=== PATIENT | male | born 1970 | race Hispanic/Latino ===

== ENCOUNTER 2024-04-10 15:28 | Emergency (ER) | payer OTHER ==
--- NOTE | 2024-04-10 16:18 | RAD REPORT ---
Procedure: Chest Single View HISTORY: Chest pain COMPARISON: none FINDINGS: The lungs appear clear of acute infiltrate. No significant pleural effusion noted. The heart is normal size. IMPRESSION: No acute abnormality is displayed.
[2024-04-10 16:42] LABS: Absolute Eosinophils 0.2 K/uL (0-0.5); Absolute Lymphocytes (CBC) 1.1 K/uL (0.7-4.9); Absolute Monocytes 0.3 K/uL (0.1-1.3); Absolute Neutrophil 3.6 K/uL (1.8-8.0); Basophils % 0.8 % (0-1.3); Eosinophils % 4.4 % (0-4.4); Hematocrit 44.2 % (39.6-49.0); Hemoglobin 15.5 g/dL (13.6-17.9); Lymphocytes % 20.2 % (15.3-44.8); MCH 32.8 pg (27.0-35.0); MCHC 35.1 g/dL (32.0-36.0); MCV 93.5 fL (80-100); MPV 6.9 fL (7.6-11.3); Neutrophils % 68.6 % (41.7-73.7); Nucleated Red Blood Cells % 0.1 % (0-0); Platelets 329 thou/uL (152-406); RBC Red Blood Cell Count 4.73 M/uL (4.33-5.43); Red Cell Distribution Width 12.6 % (12.1-15.2)
[2024-04-10] MEDS ORDERED: ASPIRIN 81 MG CHEWABLE TABLET ONE (16:44)
[2024-04-10 17:01] LABS: ALT/SGPT 28 U/L (16-61); AST/SGOT 20 U/L (15-37); Albumin 3.7 g/dL (3.4-5.0); Albumin/Globulin Ratio 1.1 (1.1-1.8); Alkaline Phosphatase 88 U/L (45-117); Anion Gap 7.9 mEq/L (5.0-15.0); BUN Blood Urea Nitrogen 16 mg/dL (7-18); Bicarbonate 25 mEq/L (21-32); Bilirubin Total 0.5 mg/dL (0.2-1.0); Globulin 3.4 g/dL (2.3-3.5); Glomerular Filtration Rate 81 ml/min (=/>90); Glucose Level 101 mg/dL (74-106); Magnesium 2.5 mg/dL (1.6-2.4); Potassium 3.9 mEq/L (3.5-5.1); Protein, Total 7.1 g/dL (6.4-8.2); Sodium Level 138 mEq/L (136-145)
[2024-04-10 17:02] LABS: Bilirubin Direct < 0.2 mg/dL (0-0.2); Bilirubin Indirect, Calculated 0.3 mg/dL (0.2-0.8); Troponin High Sensitivity < 3.0 pg/mL (<58.9)
--- NOTE | 2024-04-10 19:55 | ER ---
Nurse's Notes [facility] Name: Mike Sears Age: 53 yrs Sex: Male : 1970 Arrival Date: 04/10/2024 Time: 15:28 Bed 2 Private MD: Diagnosis: Chest pain, unspecified Presentation: 04/10 15:39 Chief complaint: Patient states: Dizzy this morning then at work about an hour ago me1 patient became dizzy and had chest tightness 5/10 with sob and vomited x1. Chest tightness 3/10 at this time. Coronavirus screen: Vaccine status: Patient reports receiving the 2nd dose of the covid vaccine. Ebola Screen: No symptoms or risks identified at this time. Initial Sepsis Screen: Does the patient meet any 2 criteria? No. Patient's initial sepsis screen is negative. Does the patient have a suspected source of infection? No. Patient's initial sepsis screen is negative. Risk Assessment: Do you want to hurt yourself or someone else? Patient reports no desire to harm self or others. Onset of symptoms was April 10, 2024 at 08:00. 15:39 Method Of Arrival: Ambulatory [facility] [place] 15:39 Acuity: MIKIE 3 me1 Triage Assessment: 15:45 General: Appears in no apparent distress. Behavior is calm, cooperative, appropriate bp for age. Pain: Complains of pain in chest. EENT: No deficits noted. Neuro: Reports dizziness. Cardiovascular: Reports chest pain. Respiratory: No deficits noted. GI: No signs and/or symptoms were reported involving the gastrointestinal system. : No signs and/or symptoms were reported regarding the genitourinary system. Derm: No deficits noted. Musculoskeletal: No deficits noted. Historical: - Allergies: 15:42 No Known Allergies; me1 - PMHx: 15:42 Anxiety; me1 - PSHx: 15:42 abscess I\T\D on back; me1 - Immunization history:: Adult Immunizations up to date. - Infectious Disease History:: Denies. - Social history:: Smoking status: Patient reports the use of cigarette tobacco products, denies chronic smoking, but will smoke occasionally. Screenin:45 [facility] ED Fall Risk Assessment (Adult) History of falling in the last 3 months, bp including since admission No falls in past 3 months (0 pts) Confusion or Disorientation No (0 pts) Intoxicated or Sedated No (0 pts) Impaired Gait No (0 pts) Mobility Assist Device Used No (0 pt) Altered Elimination No (0 pt) Score/Fall Risk Level 0 - 2 = Low Risk Oriented to surroundings. Abuse screen: Denies threats or abuse. Denies injuries from another. Nutritional screening: No deficits noted. Tuberculosis screening: No symptoms or risk factors identified. Assessment: 15:45 General: Appears in no apparent distress. Behavior is calm, cooperative, appropriate bp for age. 17:20 Reassessment: Patient appears in no apparent distress at this time. Patient is alert, bp oriented x 3, equal unlabored respirations, skin warm/dry/pink. 19:26 Reassessment: Patient is alert, oriented x 3, equal unlabored respirations, skin dd2 warm/dry/pink. Patient states feeling better. General: Appears in no apparent distress. Pain: Complains of pain in right upper quadrant and right lower quadrant Pain does not radiate. Pain currently is 2 out of 10 on a pain scale. Neuro: No deficits noted. Level of Consciousness is awake, alert, obeys commands, Oriented to person, place, time, situation, Appropriate for age. Cardiovascular: Patient's skin is warm and dry. Rhythm is sinus rhythm. Respiratory: No deficits noted. Airway is patent Respiratory effort is even, unlabored, Respiratory pattern is regular, symmetrical. GI: Abdomen is flat, non-distended, Abd is soft and non tender X 4 quads. Reports lower abdominal pain, upper abdominal pain, nausea. : No deficits noted. No signs and/or symptoms were reported regarding the genitourinary system. EENT: No deficits noted. No signs and/or symptoms were reported regarding the EENT system. Derm: No deficits noted. No signs and/or symptoms reported regarding the dermatologic system. Musculoskeletal: No deficits noted. No signs and/or symptoms reported regarding the musculoskeletal system. Circulation, motion, and sensation intact. Range of motion: intact in all extremities. 20:55 Reassessment: Patient appears in no apparent distress at this time. No changes from dd2 previously documented assessment. Patient and/or family updated on plan of care and expected duration. Pain level reassessed. Patient is alert, oriented x 3, equal unlabored respirations, skin warm/dry/pink. Vital Signs: 15:39 BP 139 / 100; Pulse 72; Resp 17; Temp 97.6; Pulse Ox 100% ; Weight 72.57 kg; Height 5 me1 ft. 9 in. ; Pain 3/10; 17:19 BP 132 / 96; Pulse 58; Resp 15; Pulse Ox 99% ; bp 19:24 BP 141 / 97; Pulse 82; Resp 16; Pulse Ox 100% ; dd2 20:55 BP 126 / 91; Pulse 64; Resp 17; Pulse Ox 99% ; dd2 15:39 Body Mass Index 23.63 (72.57 kg, 175.26 cm) me1 15:39 Pain Scale: Adult nh1 ED Course: 15:31 Patient arrived in ED. al6 15:34 Tona Shore FNP-C is PHCP. kb 15:34 Jh Calabrese MD is Attending Physician. kb 15:42 Triage completed. me1 15:42 Arm band placed on Patient placed in waiting room. me1 15:45 Patient has correct armband on for positive identification. Provided Education on: na. bp Client placed on continuous cardiac and pulse oximetry monitoring. NIBP monitoring applied. commercial real estate underwriter on. Pulse ox on. NIBP on. 15:48 EKG done, by ED staff, reviewed by Tona MIRELES. me1 16:00 XRAY Chest (1 view) In Process Unspecified. EDMS 16:00 No provider procedures requiring assistance completed. Initial lab(s) drawn, by me, bp sent to lab. Inserted saline lock: 20 gauge in left forearm, using aseptic technique. Blood collected. Flushed with 10 mL NS. Patient maintains SpO2 saturation greater than 95% on room air. 16:30 Troy Villar, RN is Primary Nurse. bp 17:18 PHCP role handed off by Tona Shore FNP-C cp 17:18 Rey Maurer PA is PHCP. cp 19:24 Troponin High Sensitivity Sent. dd2 19:28 Repeat lab(s) drawn. by me, sent to lab. dd2 19:53 Red Robles MD is Referral Physician. cp 19:59 EKG done, by technical instructor course developer. reviewed by Rey MEDINA. oh1 20:54 IV discontinued, intact, bleeding controlled, No redness/swelling at site. Pressure dd2 dressing applied. Administered Medications: 16:48 Drug: Aspirin PO Chewable Tablet 324 mg PO once; 81 mg tablets x 4 Route: PO; aa5 20:55 Follow up: Response: No adverse reaction; Marked relief of symptoms dd2 Medication: 20:54 VIS not applicable for this client. dd2 Outcome: 19:54 Discharge ordered by . negar 20:54 Discharged to home ambulatory, dd2 20:54 Condition: stable 20:54 Discharge instructions given to patient, Instructed on discharge instructions, follow up and referral plans. Demonstrated understanding of instructions, follow-up care, 20:56 Patient left the ED. dd2 Signatures: Dispatcher [employer] EDMS Tona Shore, STOKER ERECTOR-C STOKER ERECTOR-Sabrina Krueger, RN RN aa5 Rey Maurer PA PA Troy Fortune, RN RN bp Layla Nunes RN RN me1 SHYAM GAINES RN RN dd2 Radha German oh1 Ileana Dawkins al6
--- NOTE | 2024-04-10 19:55 | EDPHYS ---
Physician Documentation [facility] Name: Mike Sears Age: 53 yrs Sex: Male : 1970 Arrival Date: 04/10/2024 Time: 15:28 Bed 2 Private MD: ED Physician Jh Calabrese HPI: 04/10 16:28 This 53 yrs old Male presents to ER via Ambulatory with complaints of Chest kb Tightness, Dizziness, Vomiting. 16:28 The patient or guardian reports chest pain that is located primarily in the anterior cp chest wall. 16:28 Onset: 1 hour(s) ago. cp Historical: - Allergies: 15:42 No Known Allergies; me1 - PMHx: 15:42 Anxiety; me1 - PSHx: 15:42 abscess I\T\D on back; me1 - Immunization history:: Adult Immunizations up to date. - Infectious Disease History:: Denies. - Social history:: Smoking status: Patient reports the use of cigarette tobacco products, denies chronic smoking, but will smoke occasionally. ROS: 16:27 Constitutional: As per HPI kb Exam: 15:49 Constitutional: This is a well developed, well nourished patient who is awake, alert, kb and in no acute distress. Head/Face: Normocephalic, atraumatic. ENT: Moist Mucous membranes Cardiovascular: Regular rate Respiratory: Respirations even and unlabored. No increased work of breathing. Talking in full sentences Abdomen/GI: Soft, non-tender. No distention Skin: Warm, dry with normal turgor. Normal color. MS/ Extremity: Pulses equal, no cyanosis. Neurovascular intact. Full, normal range of motion. Neuro: Awake and alert, GCS 15, oriented to person, place, time, and situation. 15:49 ECG was reviewed by the Attending Physician. 19:50 ECG was reviewed by the Attending Physician. Vital Signs: 15:39 BP 139 / 100; Pulse 72; Resp 17; Temp 97.6; Pulse Ox 100% ; Weight 72.57 kg; Height 5 me1 ft. 9 in. ; Pain 3/10; 17:19 BP 132 / 96; Pulse 58; Resp 15; Pulse Ox 99% ; bp 19:24 BP 141 / 97; Pulse 82; Resp 16; Pulse Ox 100% ; dd2 20:55 BP 126 / 91; Pulse 64; Resp 17; Pulse Ox 99% ; dd2 15:39 Body Mass Index 23.63 (72.57 kg, 175.26 cm) me1 15:39 Pain Scale: Adult me1 MDM: 15:34 Medical Screening Exam initiated kb 16:27 Data reviewed: vital signs, nurses notes. kb 17:18 Differential diagnosis: abnormal EKG, acute myocardial infarction. The patient was kb given aspirin in the Emergency Department. Transition of care: After a detail discussion of the patient's case, care is transferred to Rey MILES 04/10 15:41 Order name: Basic Metabolic Panel; Complete Time: 17:16 kb 04/10 15:41 Order name: CBC with Diff; Complete Time: 16:45 kb 04/10 15:41 Order name: LFT's; Complete Time: 17:16 kb 04/10 15:41 Order name: Magnesium; Complete Time: 17:16 kb 04/10 15:41 Order name: Troponin HS; Complete Time: 17:16 kb 04/10 19:13 Order name: Troponin High Sensitivity; Complete Time: 19:49 cp 04/10 19:49 Interpretation: Reviewed. cp 04/10 15:41 Order name: XRAY Chest (1 view); Complete Time: 16:21 kb 04/10 15:41 Order name: EKG; Complete Time: 15:42 kb 04/10 15:41 Order name: Cardiac monitoring; Complete Time: 16:38 kb 04/10 15:41 Order name: EKG - Nurse/Tech; Complete Time: 15:48 kb 04/10 15:41 Order name: IV Saline Lock; Complete Time: 16:38 kb 04/10 15:41 Order name: Labs collected and sent; Complete Time: 16:38 kb 04/10 15:41 Order name: O2 Per Protocol; Complete Time: 16:31 kb 04/10 15:41 Order name: O2 Sat Monitoring; Complete Time: 16:31 kb 04/10 19:13 Order name: EKG - Nurse/Tech; Complete Time: 20:00 cp EC:49 Rate is 72 beats/min. Rhythm is regular. QRS [place] is Normal. FL interval is normal at kb 162 msec. QRS interval is normal at 78 msec. QT interval is normal at 427 msec. 19:50 Rate is 62 beats/min. Rhythm is regular. FL interval is normal. QRS interval is normal. cp QT interval is normal. T waves are Inverted in lead aVR. Interpreted by me. Reviewed by me. Administered Medications: 16:48 Drug: Aspirin PO Chewable Tablet 324 mg PO once; 81 mg tablets x 4 Route: PO; aa5 20:55 Follow up: Response: No adverse reaction; Marked relief of symptoms dd2 Disposition Summary: 04/10/24 19:54 Discharge Ordered Notes: Location: Home cp Problem: new cp Symptoms: have improved cp Condition: Stable cp Diagnosis - Chest pain, unspecified cp Followup: cp - With: Red Robles MD - When: 2 - 3 days - Reason: Recheck today's complaints Discharge Instructions: - Discharge Summary Sheet cp - Nonspecific Chest Pain, Adult cp - Aspirin and Your Heart cp Forms: - Medication Reconciliation Form cp - Antibiotic Education cp - Prescription Opioid Use cp - Patient Portal Instructions cp - Leadership Thank You Letter cp Signatures: Dispatcher [employer] EDTona Hung FNP-Yaima ANDERSON-Sabrina Krueger, RN RN aa5 Rey Maurer PA PA cp Layla Nunes RN RN me1 SHYAM GAINES RN dd2 Corrections: (The following items were deleted from the chart) 19:14 19:14 Troponin High Sensitivity+[id number].LAB.BRZ ordered. EDAK EDMS
[2024-04-10 21:02] VITALS: BP 132/96; O2SAT 99
[2024-04-10 21:12] VITALS: TEMP 97.6
== END 2024-04-10 20:56 | disposition home or self-care (01) ==
LOC: ER 15:28
DX: R07.89 Other chest pain (principal); F41.9 Anxiety disorder, unspecified; F17.210 Nicotine dependence, cigarettes, uncomplicated
CPT/HCPCS: 36415; 71045; 80048; 80076; 83735; 84484; 85025; 93005; 99285